=== PATIENT | male | born 1970 | race Two or more races ===

== ENCOUNTER → 2020-09-23 | Outpatient (CLI) | payer OTHER ==
[~2020-09-23] MED LIST: CYAN100031 PO; FERR325T72 PO; METF10007 PO; PANT40TA77 PO; PIOG30TA41 PO
[2020-09-23 12:34] LABS: BASO % 1 % (0-3); EOS % 2 % (0-3); HEMATOCRIT 35.1 % (39.0-53.0); HEMOGLOBIN 11.2 g/dL (13.0-17.5); LYMPH # 0.6 x10^3/uL (1.0-4.8); LYMPH % 27 % (24-48); MEAN CORPUSCULAR HEMOGLOBIN 25 pg (25-35); MEAN CORPUSCULAR HGB CONC 32 g/dL (31-37); MEAN CORPUSCULAR VOLUME 77 fL (79-100); MONO # 0.2 x10^3/uL (0.0-1.1); MONO % 10 % (0-9); NEUT # 1.3 x10^3/uL (1.8-7.7); PLATELET COUNT 58 x10^3/uL (140-400); RED BLOOD COUNT 4.56 x10^6/uL (4.30-5.70); RED CELL DISTRIBUTION WIDTH 17.2 % (11.5-14.5); WHITE BLOOD COUNT 2.1 x10^3/uL (4.0-11.0)
[2020-09-23 13:05] LABS: CALCIUM 8.5 mg/dL (8.5-10.1); CREATININE 0.5 mg/dL (0.7-1.3); GFR 176.7; POTASSIUM 3.8 mmol/L (3.5-5.1)
[2020-09-23 13:23] LABS: ALBUMIN 3.7 g/dL (3.4-5.0); ALBUMIN/GLOBULIN RATIO 0.9 (1.0-1.7); C-REACTIVE PROTEIN 1.6 mg/L (0-3.3); MAGNESIUM 1.8 mg/dL (1.8-2.4); TOTAL PROTEIN 7.7 g/dL (6.4-8.2)
[2020-09-23 21:07] LABS: RHEUMATOID FACTOR 10.3 IU/mL (0.0-13.9)
[2020-09-24 15:13] LABS: KAPPA FREE 23.5 mg/L (3.3-19.4); KAPPA LAMBDA RATIO 1.14 (0.26-1.65); LAMBDA FREE 20.7 mg/L (5.7-26.3)
[2020-09-26 14:10] LABS: IMMUNOGLOBULIN A 427 mg/dL (90-386); IMMUNOGLOBULIN G 1430 mg/dL (603-1613); IMMUNOGLOBULIN M 306 mg/dL (20-172)
[2020-09-26 15:12] LABS: H PYLORI IGA 11.2 units (0.0-8.9); H PYLORI IGM <9.0 units (0.0-8.9)
[2020-09-26 16:10] LABS: ANA INTERP Negative (.)
[2020-09-26 18:10] LABS: ALBUM 3.8 g/dL (2.9-4.4); ALPHA 1 0.2 g/dL (0.0-0.4); ALPHA 2 0.6 g/dL (0.4-1.0); BETA 1.2 g/dL (0.7-1.3); GAMMA 1.7 g/dL (0.4-1.8); PROTEIN TOTAL 7.5 g/dL (6.0-8.5)
[2020-09-27 03:12] LABS: CYCLIC CITRULLIN PEP AB 5 units (0-19)
[2020-09-27 11:34] LABS: NEUT % 61 % (31-73)
== END ==
LOC: ONCLAB 11:55
PROVIDERS: ATTEND Internal Medicine
DX: D61.818 Other pancytopenia (principal); K76.0 Fatty (change of) liver, not elsewhere classified
CPT/HCPCS: 36415; 80053; 82525; 82607; 82668; 82728; 82746; 82784; 83010; 83520; 83540; 83550; 83615; 83735; 84165; 85025; 85045; 85651; 86038; 86140; 86200; 86317; 86334; 86431; 86677; 86704; 86803; 86880; 87340

== ENCOUNTER 2020-10-31 20:55 | Inpatient (IN) | payer OTHER ==
[~2020-10-31] VITALS: Ht 170.2 cm; Wt 87.7 kg
[2020-10-31] VITALS (9 sets, daily range): BP systolic 108–139; BP diastolic 48–70
[2020-10-31] MEDS ORDERED: ZOLPIDEM 5 MG TABLET. PO PRN (21:15)
[2020-10-31] MEDS: IV NORMAL SALINE 1000ML BAG 1,000 ML IV SCH (21:15)
[2020-10-31] MEDS ORDERED: HYDROcodone/APAP 5/325MG 1 TAB TABLET PO PRN ×2 (21:15)
[2020-10-31] MEDS ORDERED: ACETAMINOPHEN 325 MG TABLET. PO PRN (21:15)
[2020-10-31] MEDS ORDERED: 0.9 % SODIUM CHLORIDE 10 ML DISP.SYRIN. IV PRN (21:15)
[2020-10-31] MEDS ORDERED: BISACODYL 10 MG SUPP.RECT. PR PRN (21:15)
[2020-10-31] MEDS ORDERED: ONDANSETRON PF 4 MG/2 ML VIAL. IVP PRN (21:15)
[2020-10-31] MEDS ORDERED: PIOG30TA41 PO (22:01)
[2020-10-31] MEDS ORDERED: METF10007 PO (22:01)
[2020-10-31 22:08] LABS: RED BLOOD COUNT 2.09 x10^6/uL (4.30-5.70); WHITE BLOOD COUNT 13.2 x10^3/uL (4.0-11.0)
[2020-10-31 22:11] LABS: HEMOGLOBIN 5.4 g/dL (13.0-17.5)
[2020-10-31 22:12] LABS: HEMATOCRIT 16.8 % (39.0-53.0)
[2020-11-01] VITALS (31 sets, daily range): BP systolic 90–124; BP diastolic 45–88
--- NOTE | 2020-11-01 04:27 | NUR ---
direct admit from [facility]- GI bleed. Dark stools for several weeks. Increasing abd. pain. one U prbc;s given
--- NOTE | 2020-11-01 06:55 | PDOC1 ---
History and Physical Date of Admission Date of Admission DATE: 11/01/20 TIME: 06:39 Identification/Chief Complaint Chief Complaint Abdominal pain, melena Source Source: Chart review, Patient History of Present Illness History of Present Illness Patient is a 50-year-old male with past medical history DM2, who presents as a transfer from [facility] due to upper GI bleed. He was initially came to the ER last night due to complaints of right upper quadrant and epigastric abdominal pain over the past 3 days. He also reports associated dark stools over the past 2 weeks. He was seen by his PCP with concerns of his dark stools and was treated with PPI without improvement. He also notes taking some Pepto- Bismol for symptoms without improvement. He denies any history of NSAID use or prior history of ulcers. He is a former alcohol user. In the ER labs showed hemoglobin 5.4, platelet 112, WBC 13.2, CBG 325, Na 131, BUN 27, Cr 0.6, FOBT positive. He was transferred to [facility] for higher level of care and further medical management. Past Medical History Past Medical History Diabetes Past Surgical History Past Surgical History: No pertinent history Family History Family History: Diabetes Social History Smoke: No ALCOHOL: none Drugs: None Current Medications Current Medications Current Medications Acetaminophen (Tylenol) 650 mg PRN Q6HRS PRN PO Headaches, Temp > 101.5'; Start 10/31/20 at 21:15 Ondansetron HCl (Zofran) 4 mg PRN Q6HRS PRN IVP NAUSEA/VOMITING 1ST CHOICE; Start 10/31/20 at 21:15 Zolpidem Tartrate (Ambien) 5 mg PRN QHS PRN PO INSOMNIA, MAY REPEAT IN 1HR; Start 10/31/20 at 21:15 Sodium Chloride (Normal Saline Flush) 3 ml QSHIFT PRN IV AFTER MEDS AND BLOOD DRAWS; Start 10/31/20 at 21:15 Sodium Chloride 1,000 ml @ 100 mls/hr Q10H IV Last administered on 10/31/20at 21:15; Start 10/31/20 at 21:15 Acetaminophen/ Hydrocodone Bitart (Lortab 5/325) 1 tab PRN Q4HRS PRN PO MILD PAIN 1-3 Last administered on 10/31/20at 23:11; Start 10/31/20 at 21:15 Acetaminophen/ Hydrocodone Bitart (Lortab 5/325) 2 tab PRN Q4HRS PRN PO MODERATE PAIN, SEVERE PAIN; Start 10/31/20 at 21:15 Morphine Sulfate (Morphine Sulfate) 2 mg PRN Q1HR PRN IV SEVERE PAIN 7-10; Start 10/31/20 at 21:15 Bisacodyl (Dulcolax Supp) 10 mg PRN DAILY PRN AL CONSTIPATION; Start 10/31/20 at 21:15 Pantoprazole Sodium (PROTONIX VIAL for IV PUSH) 40 mg DAILYAC IVP ; Start 11/01/20 at 07:30 Active Scripts Active Reported Actos (Pioglitazone Hcl) 30 Mg Tablet 30 Mg PO DAILY Metformin Hcl 1,000 Mg Tablet 1,000 Mg PO BIDWMEALS Allergies Allergies: Coded Allergies: No Known Drug Allergies (Unverified , 10/31/20) ROS Review of System GENERAL: No history of weight change, weakness or fevers. SKIN: No bruising, hair changes or rashes. EYES: No blurred, double or loss of vision. NOSE AND THROAT: No history of nosebleeds, hoarseness or sore throat. HEART: Denies chest pain, denies palpitations. LUNGS: Denies cough, hemoptysis, wheezing or shortness of breath. GASTROINTESTINAL: Right upper quadrant and epigastric abdominal pain. Melena. Denies nausea or vomiting. GENITOURINARY: Denies dysuria, frequency, urgency, hematuria. NEUROLOGIC: Denies history of numbness, tingling, tremor or weakness. PSYCHIATRIC: Denies anxiety, denies depression. ENDOCRINE: No history of heat or cold intolerance, polyuria or polydipsia. EXTREMITIES: Denies muscle weakness, joint pain, pain on walking or stiffness. Physical Exam Physical Exam General: Alert, Oriented X3, Cooperative, No acute distress HEENT: PERRLA, EOMI Lungs: Clear to auscultation, Normal air movement Heart: RRR, no murmurs Cardiovascular: S1, S2 Abdomen: Epigastric and right upper quadrant tenderness. Normal bowel sounds, Soft. Extremities: No clubbing, No cyanosis Skin: No rashes, No significant lesion Neuro: Normal speech, Normal tone, Sensation intact Psych/Mental Status: Mental status NL, Mood NL Vitals Vitals Vital Signs Date Time Temp Pulse Resp B/P (MAP) Pulse Ox O2 Delivery O2 Flow Rate FiO2 11/01/20 06:00 92 18 108/55 (72) 100 Room Air 11/01/20 04:00 98.7 98.7 Labs Labs Laboratory Tests Test 10/31/20 21:52 White Blood Count 13.2 x10^3/uL (4.0-11.0) Red Blood Count 2.09 x10^6/uL (4.30-5.70) Hemoglobin 5.4 g/dL (13.0-17.5) Hematocrit 16.8 % (39.0-53.0) Mean Corpuscular Volume 80 fL (79-100) Mean Corpuscular Hemoglobin 26 pg (25-35) Mean Corpuscular Hemoglobin Concent 32 g/dL (31-37) Red Cell Distribution Width 18.0 % (11.5-14.5) Platelet Count 112 x10^3/uL (140-400) Laboratory Tests Test 10/31/20 21:52 White Blood Count 13.2 x10^3/uL (4.0-11.0) Red Blood Count 2.09 x10^6/uL (4.30-5.70) Hemoglobin 5.4 g/dL (13.0-17.5) Hematocrit 16.8 % (39.0-53.0) Mean Corpuscular Volume 80 fL (79-100) Mean Corpuscular Hemoglobin 26 pg (25-35) Mean Corpuscular Hemoglobin Concent 32 g/dL (31-37) Red Cell Distribution Width 18.0 % (11.5-14.5) Platelet Count 112 x10^3/uL (140-400) VTE Prophylaxis Ordered VTE Prophylaxis Devices: Yes VTE Pharmacological Prophylaxi: Contraindicated Assessment/Plan Assessment/Plan Upper GI bleed Blood loss anemia Thrombocytopenia DM2 with hyperglycemia Plan: Patient was admitted to ICU and received packed red blood cell infusion Protonix infusion Will place consult GI; anticipate endoscopy to evaluate source of bleeding. Once his hemoglobin has improved he may be transferred out of the ICU Will continue to monitor platelets; may be secondary to history of alcohol use. Basal/prandial insulin FEN - NPO for now PPX - SCDs FULL CODE Dispo - inpatient for above Advance Care Planning: Total time spent [id number] with patient 16 minutes in discussion with goals of care, comfort care, end-of-life care, pain management, code status; patient names (Eva Escobedo) as surrogate decision-maker. Justifications for Admission Abdominal Pain Indications Is NPO status required?: Yes Justification for admission: Patient may require to be NPO for greater 24hours making it medically necessary to manage patient as inpatient. Other Justification KALIE CERVANTES MD Nov 01, 2020 06:55
[2020-11-01] MEDS ORDERED: IV DEXTROSE 5% 250 ML BAG. IV PRN (07:00)
[2020-11-01] MEDS ORDERED: DEXTROSE 50% 25 GM / 50ML DISP.SYRIN. IV PRN (07:00)
[2020-11-01 07:16] LABS: BASO % 0 % (0-3); EOS % 1 % (0-3); LYMPH # 2.6 x10^3/uL (1.0-4.8); LYMPH % 32 % (24-48); MEAN CORPUSCULAR HEMOGLOBIN 27 pg (25-35); MEAN CORPUSCULAR HGB CONC 33 g/dL (31-37); MEAN CORPUSCULAR VOLUME 81 fL (79-100); MONO # 1.2 x10^3/uL (0.0-1.1); MONO % 15 % (0-9); NEUT # 4.2 x10^3/uL (1.8-7.7); NEUT % 52 % (31-73); PLATELET COUNT 80 x10^3/uL (140-400); RED BLOOD COUNT 2.31 x10^6/uL (4.30-5.70); RED CELL DISTRIBUTION WIDTH 17.3 % (11.5-14.5)
[2020-11-01 07:21] LABS: HEMATOCRIT 18.6 % (39.0-53.0); HEMOGLOBIN 6.2 g/dL (13.0-17.5)
[2020-11-01 07:23] LABS: PROTHROMBIN TIME PATIENT 16.5 SEC (11.7-14.0)
[2020-11-01 07:39] LABS: ALBUMIN 2.1 g/dL (3.4-5.0); ALBUMIN/GLOBULIN RATIO 0.8 (1.0-1.7); CALCIUM 7.2 mg/dL (8.5-10.1); CREATININE 0.7 mg/dL (0.7-1.3); GFR 119.9; POTASSIUM 4.2 mmol/L (3.5-5.1); TOTAL BILIRUBIN 0.7 mg/dL (0.2-1.0); TOTAL PROTEIN 4.7 g/dL (6.4-8.2)
[2020-11-01] MEDS: PANTOPRAZOLE IV PUSH 40 MG VIAL. IVP SCH (08:38)
[2020-11-01] MEDS: MORPHINE SULFATE 2 MG/ML VIAL. IV PRN ×2 (08:42→17:39)
[2020-11-01] MEDS: INSULIN LISPRO 300 UNITS/3 ML VIAL. SQ SCH ×3 (09:35→17:36)
[2020-11-01] MEDS: IV NORMAL SALINE 1000ML BAG 1,000 ML IV SCH ×2 (10:29→17:38)
--- NOTE | 2020-11-01 13:24 | PDOC2 ---
CONSULT Date of Consult Date of Consult DATE: 11/01/20 TIME: 13:21 Reason for Consult Reason for Consult: Anemia/melena Past Surgical History Past Surgical History: No pertinent history Family History Family History: Diabetes Social History No ALCOHOL: none Drugs: None Current Medications Current Medications Current Medications Acetaminophen (Tylenol) 650 mg PRN Q6HRS PRN PO Headaches, Temp > 101.5'; Start 10/31/20 at 21:15 Ondansetron HCl (Zofran) 4 mg PRN Q6HRS PRN IVP NAUSEA/VOMITING 1ST CHOICE; Start 10/31/20 at 21:15 Zolpidem Tartrate (Ambien) 5 mg PRN QHS PRN PO INSOMNIA, MAY REPEAT IN 1HR; Start 10/31/20 at 21:15 Sodium Chloride (Normal Saline Flush) 3 ml QSHIFT PRN IV AFTER MEDS AND BLOOD DRAWS; Start 10/31/20 at 21:15 Sodium Chloride 1,000 ml @ 100 mls/hr Q10H IV Last administered on 11/01/20at 10:29; Start 10/31/20 at 21:15 Acetaminophen/ Hydrocodone Bitart (Lortab 5/325) 1 tab PRN Q4HRS PRN PO MILD PAIN 1-3 Last administered on 10/31/20at 23:11; Start 10/31/20 at 21:15 Acetaminophen/ Hydrocodone Bitart (Lortab 5/325) 2 tab PRN Q4HRS PRN PO MODERATE PAIN, SEVERE PAIN; Start 10/31/20 at 21:15 Morphine Sulfate (Morphine Sulfate) 2 mg PRN Q1HR PRN IV SEVERE PAIN 7-10 Last administered on 11/01/20at 08:42; Start 10/31/20 at 21:15 Bisacodyl (Dulcolax Supp) [address] CONSTIPATION; Start 10/31/20 at 21:15 Pantoprazole Sodium (PROTONIX VIAL for IV PUSH) 40 mg DAILYAC IVP Last administered on 11/01/20at 08:38; Start 11/01/20 at 07:30 Insulin Glargine (Lantus Syringe) 15 unit QHS SQ ; Start 11/01/20 at 21:00 Insulin Human Lispro (HumaLOG) 5 units TIDWMEALS SQ Last administered on 11/01/20at 09:35; Start 11/01/20 at 08:00 Dextrose (Dextrose 50%-Water Syringe) 12.5 gm PRN Q15MIN PRN IV SEE COMMENTS; Start 11/01/20 at 07:00 Dextrose (Iv Dextrose 5%) 250 ml PRN Q15MIN PRN IV SEE COMMENTS; Start 11/01/20 at 07:00 Active Scripts Active Reported Actos (Pioglitazone Hcl) 30 Mg Tablet 30 Mg PO DAILY Metformin Hcl 1,000 Mg Tablet 1,000 Mg PO BIDWMEALS Allergies Allergies: Coded Allergies: No Known Drug Allergies (Unverified , 10/31/20) Vitals VITALS Vital Signs Date Time Temp Pulse Resp B/P (MAP) Pulse Ox O2 Delivery O2 Flow Rate FiO2 11/01/20 12:00 92 16 108/64 (79) 96 Room Air 11/01/20 11:00 99.5 99.5 Labs Labs Laboratory Tests Test 10/31/20 21:52 11/01/20 06:38 11/01/20 11:18 White Blood Count 13.2 x10^3/uL (4.0-11.0) 8.0 x10^3/uL (4.0-11.0) Red Blood Count 2.09 x10^6/uL (4.30-5.70) 2.31 x10^6/uL (4.30-5.70) Hemoglobin 5.4 g/dL (13.0-17.5) 6.2 g/dL (13.0-17.5) Hematocrit 16.8 % (39.0-53.0) 18.6 % (39.0-53.0) Mean Corpuscular Volume 80 fL (79-100) 81 fL (79-100) Mean Corpuscular Hemoglobin 26 pg (25-35) 27 pg (25-35) Mean Corpuscular Hemoglobin Concent 32 g/dL (31-37) 33 g/dL (31-37) Red Cell Distribution Width 18.0 % (11.5-14.5) 17.3 % (11.5-14.5) Platelet Count 112 x10^3/uL (140-400) 80 x10^3/uL (140-400) Neutrophils (%) (Auto) 52 % (31-73) Lymphocytes (%) (Auto) 32 % (24-48) Monocytes (%) (Auto) 15 % (0-9) Eosinophils (%) (Auto) 1 % (0-3) Basophils (%) (Auto) 0 % (0-3) Neutrophils # (Auto) 4.2 x10^3/uL (1.8-7.7) Lymphocytes # (Auto) 2.6 x10^3/uL (1.0-4.8) Monocytes # (Auto) 1.2 x10^3/uL (0.0-1.1) Eosinophils # (Auto) 0.0 x10^3/uL (0.0-0.7) Basophils # (Auto) 0.0 x10^3/uL (0.0-0.2) Prothrombin Time 16.5 SEC (11.7-14.0) Prothromb Time International Ratio 1.4 (0.8-1.1) Sodium Level 138 mmol/L (136-145) Potassium Level 4.2 mmol/L (3.5-5.1) Chloride Level 105 mmol/L (98-107) Carbon Dioxide Level 28 mmol/L (21-32) Anion Gap 5 (6-14) Blood Urea Nitrogen 24 mg/dL (8-26) Creatinine 0.7 mg/dL (0.7-1.3) Estimated GFR (Cockcroft-Gault) 119.9 BUN/Creatinine Ratio 34 (6-20) Glucose Level 238 mg/dL (70-99) Calcium Level 7.2 mg/dL (8.5-10.1) Total Bilirubin 0.7 mg/dL (0.2-1.0) Aspartate Amino Transf (AST/SGOT) 36 U/L (15-37) Alanine Aminotransferase (ALT/SGPT) 44 U/L (16-63) Alkaline Phosphatase 75 U/L (46-116) Total Protein 4.7 g/dL (6.4-8.2) Albumin 2.1 g/dL (3.4-5.0) Albumin/Globulin Ratio 0.8 (1.0-1.7) Amylase Level 84 U/L (25-115) Glucose (Fingerstick) 173 mg/dL (70-99) Laboratory Tests Test 10/31/20 21:52 11/01/20 06:38 11/01/20 11:18 White Blood Count 13.2 x10^3/uL (4.0-11.0) 8.0 x10^3/uL (4.0-11.0) Red Blood Count 2.09 x10^6/uL (4.30-5.70) 2.31 x10^6/uL (4.30-5.70) Hemoglobin 5.4 g/dL (13.0-17.5) 6.2 g/dL (13.0-17.5) Hematocrit 16.8 % (39.0-53.0) 18.6 % (39.0-53.0) Mean Corpuscular Volume 80 fL (79-100) 81 fL (79-100) Mean Corpuscular Hemoglobin 26 pg (25-35) 27 pg (25-35) Mean Corpuscular Hemoglobin Concent 32 g/dL (31-37) 33 g/dL (31-37) Red Cell Distribution Width 18.0 % (11.5-14.5) 17.3 % (11.5-14.5) Platelet Count 112 x10^3/uL (140-400) 80 x10^3/uL (140-400) Neutrophils (%) (Auto) 52 % (31-73) Lymphocytes (%) (Auto) 32 % (24-48) Monocytes (%) (Auto) 15 % (0-9) Eosinophils (%) (Auto) 1 % (0-3) Basophils (%) (Auto) 0 % (0-3) Neutrophils # (Auto) 4.2 x10^3/uL (1.8-7.7) Lymphocytes # (Auto) 2.6 x10^3/uL (1.0-4.8) Monocytes # (Auto) 1.2 x10^3/uL (0.0-1.1) Eosinophils # (Auto) 0.0 x10^3/uL (0.0-0.7) Basophils # (Auto) 0.0 x10^3/uL (0.0-0.2) Prothrombin Time 16.5 SEC (11.7-14.0) Prothromb Time International Ratio 1.4 (0.8-1.1) Sodium Level 138 mmol/L (136-145) Potassium Level 4.2 mmol/L (3.5-5.1) Chloride Level 105 mmol/L (98-107) Carbon Dioxide Level 28 mmol/L (21-32) Anion Gap 5 (6-14) Blood Urea Nitrogen 24 mg/dL (8-26) Creatinine 0.7 mg/dL (0.7-1.3) Estimated GFR (Cockcroft-Gault) 119.9 BUN/Creatinine Ratio 34 (6-20) Glucose Level 238 mg/dL (70-99) Calcium Level 7.2 mg/dL (8.5-10.1) Total Bilirubin 0.7 mg/dL (0.2-1.0) Aspartate Amino Transf (AST/SGOT) 36 U/L (15-37) Alanine Aminotransferase (ALT/SGPT) 44 U/L (16-63) Alkaline Phosphatase 75 U/L (46-116) Total Protein 4.7 g/dL (6.4-8.2) Albumin 2.1 g/dL (3.4-5.0) Albumin/Globulin Ratio 0.8 (1.0-1.7) Amylase Level 84 U/L (25-115) Glucose (Fingerstick) 173 mg/dL (70-99) Assessment/Plan Assessment/Plan Acute blood loss anemia- with melena, differential includes: PUD secondary to NSAIDS, portal hypertensino with varices, malignancy, Metz's, and/or colon cancer/polyps. Plan serial Hg transfusionsal support to maintain Hg > 7 retic/b12/iron stores to better characterize anemia PPI therapy EGD to further assess. R/B discussed with family/patient who are willing to proceed Full note dictated DARIUS HENRIQUEZ MD Nov 01, 2020 13:24
[2020-11-01] MEDS ORDERED: PROPOFOL 10 MG/ML (20ML) VIAL. IV ONE (14:51)
[2020-11-01] MEDS ORDERED: LIDOCAINE 2% PF 5 ML VIAL. ONE (14:52)
--- NOTE | 2020-11-01 14:55 | PDOC4 ---
Operative Note Operative Note EGD with biopsies/variceal banding Meds propofol per anesthesia Pre-op dx melena/acute blood loss anemia post-op dx multiple gastric ulcers s/p biopsy grade 2 esophageal varices s/p banding x6 Imp Melena- most likely secondary to variceal bleed Plan PPi therapy pending biopsy results advance diet serial CBCs B12 supplements im q month EGD in 2 weeks for repeat variceal ligation DARIUS HENRIQUEZ MD Nov 01, 2020 14:55
[2020-11-01] MEDS ORDERED: CYANOCOBALAMIN (VITAMIN B-12) 1,000 MCG/ML VIAL. IM ONE (15:00)
--- NOTE | 2020-11-01 15:37 | NUR ---
SS following for discharge planning. SS reviewed pt chart and discussed with pt RN. Pt is from home with spouse and is currently on room air. GI consulted. Pt had EGD today. SS will continue to follow for discharge planning.
[2020-11-01] MEDS ORDERED: INSULIN GLARGINE SYRINGE. SQ SCH (21:00)
--- NOTE | 2020-11-01 21:40 | CONS ---
DATE OF CONSULTATION: 11/01/2020 GI CONSULTATION REASON FOR CONSULTATION: Melena and acute blood loss anemia. HISTORY OF PRESENT ILLNESS: A 50-year-old male with past medical history significant for diabetes as well as osteoarthrosis is admitted with right upper quadrant epigastric abdominal pain over the past three days, he has been passing dark stools for the past several months. He had been taking Pepto-Bismol without improvement. Does use NSAIDs and Tylenol for his arthritis. Hemoglobin was found to be 5.4 on admission. Repeat has hemoglobin of 6.2, status post 1 unit with an additional unit already been given and a third we will be in process. Denies any change in weight. Denies any dysphagia or odynophagia. Denies family history of colon cancer. He has not undergone previous upper endoscopy or colonoscopy and does wish to be released to return to work if possible. PAST MEDICAL HISTORY: Acute blood loss anemia, diabetes. ALLERGIES: None. MEDICATIONS: Insulin, pantoprazole. 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 FAMILY HISTORY: Noncontributory. REVIEW OF SYSTEMS: Per records. PHYSICAL EXAMINATION: GENERAL: Reveals a well-nourished, well-developed male who is alert, cooperative, in mild distress. VITAL SIGNS: Temperature 99.5, pulse 92, respiratory rate 16, blood pressure 108/64. HEENT: Reveals normocephalic, atraumatic head. Pupils and extraocular muscles not tested. Sclerae are anicteric. NECK: Supple. LUNGS: Clear. HEART: Reveals S1, S2, without S3, S4 or appreciable murmur. ABDOMEN: Soft with normal bowel sounds. No appreciable hepatosplenomegaly. EXTREMITIES: No cyanosis, clubbing or edema. LABORATORY DATA: Hemoglobin 6.2, hematocrit 16.6, white count 8.0, platelet count is 80,000. Sodium 136, potassium 4.2, BUN 24, creatinine 0.7, glucose is 236, calcium 7.2, bilirubin 0.7, AST of 36, ALT 44, alkaline phosphatase 75, total protein 4.7, albumin is 2.1. Retic count, B12, folate, iron studies presently are pending. INR is 1.4. IMPRESSION: Acute blood loss anemia with NSAID use and remote alcohol history. Thrombocytopenia. Differential includes malignancy, portal hypertension, varices, peptic ulcer disease secondary to NSAIDs and/or malignancy of the stomach and his colon. Therefore, recommend upper endoscopy. We will continue with PPI drip. We will transfuse one additional unit of blood pending CBC results and proceed with upper endoscopy today to further assess symptoms. Risks and benefits were discussed with the patient's family including risk of hemorrhage and perforation and he is willing to proceed. Further studies including CT scan of abdomen and pelvis and colonoscopy after appropriate prep would be pursued. GARETT DR: Debbie TID: [id number]
[2020-11-02] MEDS: IV NORMAL SALINE 1000ML BAG 1,000 ML IV SCH (03:15)
[2020-11-02 04:00] VITALS: BP 104/50
[2020-11-02 08:00] VITALS: BP 119/64
[2020-11-02] MEDS: PANTOPRAZOLE IV PUSH 40 MG VIAL. IVP SCH (08:44)
[2020-11-02] MEDS: INSULIN LISPRO 300 UNITS/3 ML VIAL. SQ SCH ×2 (08:45→12:54)
[2020-11-02 09:26] LABS: ALBUMIN 2.3 g/dL (3.4-5.0); ALBUMIN/GLOBULIN RATIO 0.9 (1.0-1.7); CALCIUM 7.3 mg/dL (8.5-10.1); CREATININE 0.5 mg/dL (0.7-1.3); GFR 176.7; POTASSIUM 3.8 mmol/L (3.5-5.1)
--- NOTE | 2020-11-02 09:45 | PDOC ---
Date of Service: DATE: 11/02/20 TIME: 09:39 Subjective: Subjective: Feels fine, hungry, wants to go home, no bleeding. Objective: Objective: H/o heavy alcohol use - sober x 8 years. US in 2016 w/ hepatic steatosis and mild splenomegaly. Viral Hep panel negative, iron deficient, lowish B12. Vital Signs: Vital Signs Date Time Temp Pulse Resp B/P (MAP) Pulse Ox O2 Delivery O2 Flow Rate FiO2 11/02/20 08:00 99.8 97 16 119/64 (82) 98 Room Air 99.8 11/01/20 14:49 4 Labs: Laboratory Tests Test 11/01/20 11:18 11/01/20 13:25 11/01/20 17:33 11/01/20 20:33 Glucose (Fingerstick) 173 mg/dL 176 mg/dL 157 mg/dL Red Blood Count 2.56 x10^6/uL Hemoglobin 7.0 g/dL Hematocrit 21.0 % Mean Corpuscular Hemoglobin Concent 33 g/dL Absolute Reticulocyte Count 0.137 x10^6/uL Percent Reticulocyte Count 5.4 % Immature Reticulocyte Fraction 0.59 Iron Level 8 ug/dL Total Iron Binding Capacity 326 ug/dL Iron Saturation 2 % Vitamin B12 Level 371 pg/mL Test 11/02/20 08:20 11/02/20 08:40 Sodium Level 141 mmol/L Potassium Level 3.8 mmol/L Chloride Level 107 mmol/L Carbon Dioxide Level 26 mmol/L Anion Gap 8 Blood Urea Nitrogen 18 mg/dL Creatinine 0.5 mg/dL Estimated GFR (Cockcroft-Gault) 176.7 BUN/Creatinine Ratio 36 Glucose Level 157 mg/dL Calcium Level 7.3 mg/dL Total Bilirubin 1.0 mg/dL Aspartate Amino Transf (AST/SGOT) 78 U/L Alanine Aminotransferase (ALT/SGPT) 68 U/L Alkaline Phosphatase 74 U/L Total Protein 5.0 g/dL Albumin 2.3 g/dL Albumin/Globulin Ratio 0.9 Glucose (Fingerstick) 160 mg/dL Imaging: EGD with biopsies/variceal banding 11/01/20 Pre-op dx melena/acute blood loss anemia post-op dx multiple gastric ulcers s/p biopsy grade 2 esophageal varices s/p banding x6 Imp Melena- most likely secondary to variceal bleed Plan PPi therapy pending biopsy results advance diet serial CBCs B12 supplements im q month EGD in 2 weeks for repeat variceal ligation PE: GEN: NAD - up in chair eating food his brought LUNGS: CTAB HEART: RRR ABD: round, soft NEURO/PSYCH: A & O 3 A/P: Melena - no recurrence Anemia - iron and B12 deficient - s/p transfusions Thrombocytopenia, coagulopathy Medardo (biopsy pending), esophageal varices s/p banding 11/01/20 CRC screen - average risk H/o alcohol - sober x 8 years -- Awaiting recheck of labs this morning. ADAT. Okay to DC per GI on PPI, iron, and B12. Follow-up in 2 weeks for repeat EGD/banding - discussed importance of follow-up. Needs routine follow-up re: cirrhosis (abd US, AFP, etc) - can pursue as outpt. Needs outpt colonoscopy at some point for screening. Justicifation of Admission Dx: Justifications for Admission: Justification of Admission Dx: Yes BLAS MCKEON Nov 02, 2020 09:45
[2020-11-02] MEDS ORDERED: CYANOCOBALAMIN (VITAMIN B-12) 1,000 MCG TABLET. PO SCH (10:00)
[2020-11-02 10:21] LABS: BASO % 0 % (0-3); EOS % 0 % (0-3); HEMATOCRIT 24.2 % (39.0-53.0); LYMPH # 1.1 x10^3/uL (1.0-4.8); LYMPH % 28 % (24-48); MEAN CORPUSCULAR HEMOGLOBIN 27 pg (25-35); MEAN CORPUSCULAR HGB CONC 33 g/dL (31-37); MEAN CORPUSCULAR VOLUME 82 fL (79-100); MONO # 0.5 x10^3/uL (0.0-1.1); MONO % 13 % (0-9); NEUT # 2.4 x10^3/uL (1.8-7.7); NEUT % 59 % (31-73); PLATELET COUNT 60 x10^3/uL (140-400); RED BLOOD COUNT 2.94 x10^6/uL (4.30-5.70); RED CELL DISTRIBUTION WIDTH 16.7 % (11.5-14.5); WHITE BLOOD COUNT 4.1 x10^3/uL (4.0-11.0)
[2020-11-02 12:00] VITALS: BP 132/61
[2020-11-02] MEDS ORDERED: FERROUS SULFATE 325 MG TABLET. PO SCH (12:00)
--- NOTE | 2020-11-02 13:00 | NUR ---
SS following up with discharge planning. SS reviewed pt chart and discussed with pt RN. Pt is currently on room air. Probable discharge to home today with self care. SS will continue to follow for discharge planning.
[2020-11-02] MEDS ORDERED: PANT40TA77 PO (13:39)
[2020-11-02] MEDS ORDERED: FERR325T72 PO (13:42)
[2020-11-02] MEDS ORDERED: CYAN100031 PO (13:47)
--- NOTE | 2020-11-02 13:48 | PDOC ---
[employer] PROGRESS NOTE Date of Service DOS: DATE: 11/02/20 TIME: 13:36 Chief Complaint Chief Complaint Upper GI bleed Blood loss anemia Thrombocytopenia DM2 with hyperglycemia Plan: Patient was admitted to ICU and received packed red blood cell infusion Protonix infusion Will place consult GI; anticipate endoscopy to evaluate source of bleeding. Once his hemoglobin has improved he may be transferred out of the ICU Will continue to monitor platelets; may be secondary to history of alcohol use. Basal/prandial insulin FEN - NPO for now PPX - SCDs FULL CODE Dispo - inpatient for above History of Present Illness History of Present Illness Patient is a 50-year-old male with past medical history DM2, who presents as a transfer from [facility] due to upper GI bleed. He was initially came to the ER last night due to complaints of right upper quadrant and epigastric abdominal pain over the past 3 days. He also reports associated dark stools over the past 2 weeks. He was seen by his PCP with concerns of his dark stools and was treated with PPI without improvement. He also notes taking some Pepto- Bismol for symptoms without improvement. He denies any history of NSAID use or prior history of ulcers. He is a former alcohol user. In the ER labs showed hemoglobin 5.4, platelet 112, WBC 13.2, CBG 325, Na 131, BUN 27, Cr 0.6, FOBT positive. He was transferred to [facility] for higher level of care and further medical management. 11/02/2020: Patient denies significant abdominal pain. Had a EGD yesterday showin g multiple gastric ulcers s/p biopsy grade 2 esophageal varices s/p banding x 6. Per GI, he was okay to discharge on PPI, iron, and B12. His recommended follow-up in 2 weeks for repeat EGD/banding. Greater than 30 minutes spent managing discharge of this patient. Vitals/I&O Vitals/I&O: Vital Signs Date Time Temp Pulse Resp B/P (MAP) Pulse Ox O2 Delivery O2 Flow Rate FiO2 11/02/20 12:00 99.9 98 15 132/61 (84) 96 Room Air 99.9 11/01/20 14:49 4 I & O 11/01/20 11/01/20 11/02/20 15:00 23:00 07:00 Intake Total 120 ml 100 ml Output Total 351 ml 920 ml 500 ml Balance -351 ml -800 ml -400 ml Physical Exam General: Alert, Oriented X3, Cooperative Heart: Regular rate Lungs: Clear Abdomen: Normal bowel sounds, Soft Extremities: No clubbing, No cyanosis Skin: No rashes, No breakdown Labs Labs: Laboratory Tests Test 11/01/20 17:33 11/01/20 20:33 11/02/20 08:20 11/02/20 08:40 Glucose (Fingerstick) 176 mg/dL (70-99) 157 mg/dL (70-99) 160 mg/dL (70-99) White Blood Count 4.1 x10^3/uL (4.0-11.0) Red Blood Count 2.94 x10^6/uL (4.30-5.70) Hemoglobin 8.0 g/dL (13.0-17.5) Hematocrit 24.2 % (39.0-53.0) Mean Corpuscular Volume 82 fL (79-100) Mean Corpuscular Hemoglobin 27 pg (25-35) Mean Corpuscular Hemoglobin Concent 33 g/dL (31-37) Red Cell Distribution Width 16.7 % (11.5-14.5) Platelet Count 60 x10^3/uL (140-400) Neutrophils (%) (Auto) 59 % (31-73) Lymphocytes (%) (Auto) 28 % (24-48) Monocytes (%) (Auto) 13 % (0-9) Eosinophils (%) (Auto) 0 % (0-3) Basophils (%) (Auto) 0 % (0-3) Neutrophils # (Auto) 2.4 x10^3/uL (1.8-7.7) Lymphocytes # (Auto) 1.1 x10^3/uL (1.0-4.8) Monocytes # (Auto) 0.5 x10^3/uL (0.0-1.1) Eosinophils # (Auto) 0.0 x10^3/uL (0.0-0.7) Basophils # (Auto) 0.0 x10^3/uL (0.0-0.2) Sodium Level 141 mmol/L (136-145) Potassium Level 3.8 mmol/L (3.5-5.1) Chloride Level 107 mmol/L (98-107) Carbon Dioxide Level 26 mmol/L (21-32) Anion Gap 8 (6-14) Blood Urea Nitrogen 18 mg/dL (8-26) Creatinine 0.5 mg/dL (0.7-1.3) Estimated GFR (Cockcroft-Gault) 176.7 BUN/Creatinine Ratio 36 (6-20) Glucose Level 157 mg/dL (70-99) Calcium Level 7.3 mg/dL (8.5-10.1) Total Bilirubin 1.0 mg/dL (0.2-1.0) Aspartate Amino Transf (AST/SGOT) 78 U/L (15-37) Alanine Aminotransferase (ALT/SGPT) 68 U/L (16-63) Alkaline Phosphatase 74 U/L (46-116) Total Protein 5.0 g/dL (6.4-8.2) Albumin 2.3 g/dL (3.4-5.0) Albumin/Globulin Ratio 0.9 (1.0-1.7) Test 11/02/20 12:14 Glucose (Fingerstick) 173 mg/dL (70-99) Comment Review of Relevant I have reviewed the following items brandon (where applicable) has been applied. Medications: Current Medications Medications (Trade) Dose Ordered Sig/Nayan Route PRN Reason Start Time Stop Time Status Last Admin Dose Admin Insulin Glargine (Lantus Syringe) 15 unit QHS SQ 11/01/20 21:00 11/01/20 20:34 Cyanocobalamin (Vitamin B-12 Inj) 1,000 mcg 1X ONCE IM 11/01/20 15:00 11/01/20 15:01 DC 11/01/20 15:23 Ferrous Sulfate (Feosol) 325 mg BIDWMEALS PO 11/02/20 12:00 11/02/20 12:53 Cyanocobalamin (Vitamin B-12) 1,000 mcg DAILY PO 11/02/20 10:00 11/02/20 12:53 Justifications for Admission Abdominal Pain Indications Is NPO status required?: Yes Justification for admission: Patient may require to be NPO for greater 24hours making it medically necessary to manage patient as inpatient. Other Justification KALIE CERVANTES MD Nov 02, 2020 13:48
--- NOTE | 2020-11-02 13:50 | PDOC3 ---
Discharge Summary Visit Information Date of Admission: Nov 01, 2020 Date of Discharge: Nov 02, 2020 Brief Hospital Course Allergies Allergies Coded Allergies Type Severity Reaction Last Updated Verified No Known Drug Allergies 10/31/20 No Vital Signs Vital Signs Date Time Temp Pulse Resp B/P (MAP) Pulse Ox O2 Delivery O2 Flow Rate FiO2 11/02/20 12:00 99.9 98 15 132/61 (84) 96 Room Air 99.9 11/01/20 14:49 4 Lab Results Laboratory Tests Test 10/31/20 21:52 11/01/20 06:38 11/01/20 11:18 11/01/20 13:25 White Blood Count 13.2 x10^3/uL (4.0-11.0) 8.0 x10^3/uL (4.0-11.0) Red Blood Count 2.09 x10^6/uL (4.30-5.70) 2.31 x10^6/uL (4.30-5.70) 2.56 x10^6/uL (4.30-5.70) Hemoglobin 5.4 g/dL (13.0-17.5) 6.2 g/dL (13.0-17.5) 7.0 g/dL (13.0-17.5) Hematocrit 16.8 % (39.0-53.0) 18.6 % (39.0-53.0) 21.0 % (39.0-53.0) Mean Corpuscular Volume 80 fL (79-100) 81 fL (79-100) Mean Corpuscular Hemoglobin 26 pg (25-35) 27 pg (25-35) Mean Corpuscular Hemoglobin Concent 32 g/dL (31-37) 33 g/dL (31-37) 33 g/dL (31-37) Red Cell Distribution Width 18.0 % (11.5-14.5) 17.3 % (11.5-14.5) Platelet Count 112 x10^3/uL (140-400) 80 x10^3/uL (140-400) Neutrophils (%) (Auto) 52 % (31-73) Lymphocytes (%) (Auto) 32 % (24-48) Monocytes (%) (Auto) 15 % (0-9) Eosinophils (%) (Auto) 1 % (0-3) Basophils (%) (Auto) 0 % (0-3) Neutrophils # (Auto) 4.2 x10^3/uL (1.8-7.7) Lymphocytes # (Auto) 2.6 x10^3/uL (1.0-4.8) Monocytes # (Auto) 1.2 x10^3/uL (0.0-1.1) Eosinophils # (Auto) 0.0 x10^3/uL (0.0-0.7) Basophils # (Auto) 0.0 x10^3/uL (0.0-0.2) Prothrombin Time 16.5 SEC (11.7-14.0) Prothromb Time International Ratio 1.4 (0.8-1.1) Sodium Level 138 mmol/L (136-145) Potassium Level 4.2 mmol/L (3.5-5.1) Chloride Level 105 mmol/L (98-107) Carbon Dioxide Level 28 mmol/L (21-32) Anion Gap 5 (6-14) Blood Urea Nitrogen 24 mg/dL (8-26) Creatinine 0.7 mg/dL (0.7-1.3) Estimated GFR (Cockcroft-Gault) 119.9 BUN/Creatinine Ratio 34 (6-20) Glucose Level 238 mg/dL (70-99) Calcium Level 7.2 mg/dL (8.5-10.1) Total Bilirubin 0.7 mg/dL (0.2-1.0) Aspartate Amino Transf (AST/SGOT) 36 U/L (15-37) Alanine Aminotransferase (ALT/SGPT) 44 U/L (16-63) Alkaline Phosphatase 75 U/L (46-116) Total Protein 4.7 g/dL (6.4-8.2) Albumin 2.1 g/dL (3.4-5.0) Albumin/Globulin Ratio 0.8 (1.0-1.7) Amylase Level 84 U/L (25-115) Glucose (Fingerstick) 173 mg/dL (70-99) Absolute Reticulocyte Count 0.137 x10^6/uL (0.020-0.120) Percent Reticulocyte Count 5.4 % (0.5-2.3) Immature Reticulocyte Fraction 0.59 (0.20-0.60) Iron Level 8 ug/dL (65-175) Total Iron Binding Capacity 326 ug/dL (250-450) Iron Saturation 2 % (15-34) Vitamin B12 Level 371 pg/mL (247-911) Test 11/01/20 17:33 11/01/20 20:33 11/02/20 08:20 11/02/20 08:40 Glucose (Fingerstick) 176 mg/dL (70-99) 157 mg/dL (70-99) 160 mg/dL (70-99) White Blood Count 4.1 x10^3/uL (4.0-11.0) Red Blood Count 2.94 x10^6/uL (4.30-5.70) Hemoglobin 8.0 g/dL (13.0-17.5) Hematocrit 24.2 % (39.0-53.0) Mean Corpuscular Volume 82 fL (79-100) Mean Corpuscular Hemoglobin 27 pg (25-35) Mean Corpuscular Hemoglobin Concent 33 g/dL (31-37) Red Cell Distribution Width 16.7 % (11.5-14.5) Platelet Count 60 x10^3/uL (140-400) Neutrophils (%) (Auto) 59 % (31-73) Lymphocytes (%) (Auto) 28 % (24-48) Monocytes (%) (Auto) 13 % (0-9) Eosinophils (%) (Auto) 0 % (0-3) Basophils (%) (Auto) 0 % (0-3) Neutrophils # (Auto) 2.4 x10^3/uL (1.8-7.7) Lymphocytes # (Auto) 1.1 x10^3/uL (1.0-4.8) Monocytes # (Auto) 0.5 x10^3/uL (0.0-1.1) Eosinophils # (Auto) 0.0 x10^3/uL (0.0-0.7) Basophils # (Auto) 0.0 x10^3/uL (0.0-0.2) Sodium Level 141 mmol/L (136-145) Potassium Level 3.8 mmol/L (3.5-5.1) Chloride Level 107 mmol/L (98-107) Carbon Dioxide Level 26 mmol/L (21-32) Anion Gap 8 (6-14) Blood Urea Nitrogen 18 mg/dL (8-26) Creatinine 0.5 mg/dL (0.7-1.3) Estimated GFR (Cockcroft-Gault) 176.7 BUN/Creatinine Ratio 36 (6-20) Glucose Level 157 mg/dL (70-99) Calcium Level 7.3 mg/dL (8.5-10.1) Total Bilirubin 1.0 mg/dL (0.2-1.0) Aspartate Amino Transf (AST/SGOT) 78 U/L (15-37) Alanine Aminotransferase (ALT/SGPT) 68 U/L (16-63) Alkaline Phosphatase 74 U/L (46-116) Total Protein 5.0 g/dL (6.4-8.2) Albumin 2.3 g/dL (3.4-5.0) Albumin/Globulin Ratio 0.9 (1.0-1.7) Test 11/02/20 12:14 Glucose (Fingerstick) 173 mg/dL (70-99) Laboratory Tests Test 11/01/20 17:33 11/01/20 20:33 11/02/20 08:20 11/02/20 08:40 Glucose (Fingerstick) 176 mg/dL (70-99) 157 mg/dL (70-99) 160 mg/dL (70-99) White Blood Count 4.1 x10^3/uL (4.0-11.0) Red Blood Count 2.94 x10^6/uL (4.30-5.70) Hemoglobin 8.0 g/dL (13.0-17.5) Hematocrit 24.2 % (39.0-53.0) Mean Corpuscular Volume 82 fL (79-100) Mean Corpuscular Hemoglobin 27 pg (25-35) Mean Corpuscular Hemoglobin Concent 33 g/dL (31-37) Red Cell Distribution Width 16.7 % (11.5-14.5) Platelet Count 60 x10^3/uL (140-400) Neutrophils (%) (Auto) 59 % (31-73) Lymphocytes (%) (Auto) 28 % (24-48) Monocytes (%) (Auto) 13 % (0-9) Eosinophils (%) (Auto) 0 % (0-3) Basophils (%) (Auto) 0 % (0-3) Neutrophils # (Auto) 2.4 x10^3/uL (1.8-7.7) Lymphocytes # (Auto) 1.1 x10^3/uL (1.0-4.8) Monocytes # (Auto) 0.5 x10^3/uL (0.0-1.1) Eosinophils # (Auto) 0.0 x10^3/uL (0.0-0.7) Basophils # (Auto) 0.0 x10^3/uL (0.0-0.2) Sodium Level 141 mmol/L (136-145) Potassium Level 3.8 mmol/L (3.5-5.1) Chloride Level 107 mmol/L (98-107) Carbon Dioxide Level 26 mmol/L (21-32) Anion Gap 8 (6-14) Blood Urea Nitrogen 18 mg/dL (8-26) Creatinine 0.5 mg/dL (0.7-1.3) Estimated GFR (Cockcroft-Gault) 176.7 BUN/Creatinine Ratio 36 (6-20) Glucose Level 157 mg/dL (70-99) Calcium Level 7.3 mg/dL (8.5-10.1) Total Bilirubin 1.0 mg/dL (0.2-1.0) Aspartate Amino Transf (AST/SGOT) 78 U/L (15-37) Alanine Aminotransferase (ALT/SGPT) 68 U/L (16-63) Alkaline Phosphatase 74 U/L (46-116) Total Protein 5.0 g/dL (6.4-8.2) Albumin 2.3 g/dL (3.4-5.0) Albumin/Globulin Ratio 0.9 (1.0-1.7) Test 11/02/20 12:14 Glucose (Fingerstick) 173 mg/dL (70-99) Brief Hospital Course Mr. Escobedo is a 50 old male who presented with upper GI bleed. Consultation was placed to GI. Had a EGD showing multiple gastric ulcers s/p biopsy grade 2 esophageal varices s/p banding x 6. Per GI, he was okay to discharge on PPI, iron, and B12. His recommended follow-up in 2 weeks for repeat EGD/banding. Greater than 30 minutes spent managing discharge of this patient. Discharge Information Condition at Discharge: Stable Follow Up: Weeks Disposition/Orders: D/C to Home Scheduled Cyanocobalamin (Vitamin B-12) (B-12) 1,000 Mcg Tablet.er, 1 TAB PO DAILY for supplement for 30 Days, #30 Ref 0 (Reported) Entered as Reported by: DOMO HANSON RN on 11/02/20 1347 Ferrous Sulfate (Feosol) 325 Mg Tablet, 325 MG PO BIDWMEALS for Anemia, #30 Ref 2 Prescribed by: KALIE CERVANTES MD on 11/02/20 1342 Metformin Hcl (Metformin Hcl) 1,000 Mg Tablet, 1,000 MG PO BIDWMEALS for dm, (Reported) Entered as Reported by: MARNI CARLSON on 10/31/202200 Last Taken: Unknown Dose on 10/31/20 Last Action: New Order on 10/31/202200 by MARNI CARLSON Pantoprazole Sodium (Pantoprazole Sodium ) 40 Mg Tablet.dr, 40 MG PO DAILYAC for Gastritis for 28 Days, #30 Ref 1 Prescribed by: KALIE CERVANTES MD on 11/02/20 1339 Pioglitazone Hcl (Actos) 30 Mg Tablet, 30 MG PO DAILY for DM, (Reported) Entered as Reported by: MARNI CARLSON on 10/31/202200 Last Taken: Unknown Dose on 10/31/20 Last Action: New Order on 10/31/202200 by MARNI CARLSON Justicifation of Admission Dx: Justifications for Admission: Justification of Admission Dx: Yes KALIE CERVANTES MD Nov 02, 2020 13:50
--- NOTE | 2020-11-02 14:43 | NUR ---
5Discharge Note: SELENE DAVIS[facility] Discharge instructions and discharge home medications reviewed with Patient and spouse a copy given including prescriptions to fill. Need to follow up with Dr. Doherty and personal PCP re-enforced. All questions have been answered and understanding verbalized. The following instructions and handouts were given: stomach ulcer and diabetic diet from public opinion survey takerWendy. Discontinued iv lines and catheters intact. Patient discharged to with self care.
[2020-11-03] MEDS ORDERED: PANTOPRAZOLE 40 MG TABLET.DR. PO SCH (07:30)
--- NOTE | 2020-11-04 18:07 | PATHOLOGY ---
[facility] Accession Number: [id number] . 01 Material submitted: . gastrointestinal site - BX GASTRIC ULCERS . 01 Clinical history: . GI BLEED EGD GASTRUC ULCERS ESOPHAGEAL VARICES . 02 Diagnosis: Gastric biopsies, gastric ulcers: - Chronic gastritis, moderate, with focal Helicobacter organisms identified. (JPM:edy; 11/04/2020) S 11/04/2020 0833 Local . 02 Comment: Sections of the gastric biopsy reveal segments of gastric antral mucosa showing moderate chronic inflammation, in addition to a few minute segments of acute inflammatory exudate. A properly controlled immunoperoxidase stain for Helicobacter focally reveals a few Helicobacter organisms. There is no evidence of malignancy. (JPM:edy; 11/04/2020) . . Special stain performed: Immunoperoxidase stain for Helicobacter on A1 . . 02 Electronically signed: . Franklyn Baez MD, Pathologist NPI- [id number] . 01 Gross description: . Received in formalin labeled "Gregg, Loni, BX gastric ulcers" are multiple hallman-brown soft tissue fragments measuring in aggregate 0.8 x 0.5 x 0.1 cm. The specimen is submitted entirely in A1. ([facility] [place]; 11/03/2020) [facility] 11/03/2020 1235 Local . 02 Pathologist provided ICD-10: K29.50, B96.81 . 02 CPT . 656752, [id number] Specimen Comment: A courtesy copy of this report has been sent to [phone], [phone] Specimen Comment: [id number], Specimen Comment: Report sent to ,DR LEON / DR IBRAHIM Specimen Comment: Report sent to Performed at: 01 [facility] [address] [facility] [address], [place] [id number] MD Ethan Savage MD Phone: [phone] Performed at: 02 [facility] [address] [place], [place] [id number] MD Franklyn Baez MD Phone: [phone]
== END 2020-11-02 14:56 | disposition home or self-care (01) | DRG 368 ==
LOC: 1 WEST ICU 20:55
PROVIDERS: ADMIT Internal Medicine; ATTEND Internal Medicine
PROC: 30233N1 Transfusion of Nonautologous Red Blood Cells into Peripheral Vein, Percutaneous Approach (ICD-10-PCS; principal; 2020-10-31)
PROC: 0DB68ZX Excision of Stomach, Via Natural or Artificial Opening Endoscopic, Diagnostic (ICD-10-PCS; 2020-10-31)
PROC: 06L38CZ Occlusion of Esophageal Vein with Extraluminal Device, Via Natural or Artificial Opening Endoscopic (ICD-10-PCS; 2020-11-01 14:00)
DX: I85.01 Esophageal varices with bleeding (principal); E43 Unspecified severe protein-calorie malnutrition; D62 Acute posthemorrhagic anemia; D68.9 Coagulation defect, unspecified; K25.4 Chronic or unspecified gastric ulcer with hemorrhage; D69.6 Thrombocytopenia, unspecified; E11.65 Type 2 diabetes mellitus with hyperglycemia; E53.8 Deficiency of other specified B group vitamins; M19.90 Unspecified osteoarthritis, unspecified site; Z83.3 Family history of diabetes mellitus; Z87.891 Personal history of nicotine dependence
CPT/HCPCS: 36415; 36430; 43239; 43244; 80053; 82150; 82607; 82962; 83540; 83550; 85014; 85018; 85025; 85027; 85045; 85610; 86850; 86900; 86901; 86920; 88305; 88342; C9113; J1815; J2270; J2704; J3420; J7030; P9016; G0378

== ENCOUNTER → 2020-11-04 | Outpatient (CLI) | payer OTHER ==
[2020-11-02 12:00] VITALS: BP 132/61
[2020-11-04 14:02] LABS: BASO % 1 % (0-3); EOS % 1 % (0-3); HEMATOCRIT 23.6 % (39.0-53.0); HEMOGLOBIN 7.7 g/dL (13.0-17.5); LYMPH # 0.8 x10^3/uL (1.0-4.8); LYMPH % 24 % (24-48); MEAN CORPUSCULAR HEMOGLOBIN 27 pg (25-35); MEAN CORPUSCULAR HGB CONC 33 g/dL (31-37); MEAN CORPUSCULAR VOLUME 82 fL (79-100); MONO # 0.4 x10^3/uL (0.0-1.1); MONO % 10 % (0-9); NEUT # 2.3 x10^3/uL (1.8-7.7); NEUT % 65 % (31-73); PLATELET COUNT 55 x10^3/uL (140-400); RED BLOOD COUNT 2.87 x10^6/uL (4.30-5.70); RED CELL DISTRIBUTION WIDTH 16.9 % (11.5-14.5); WHITE BLOOD COUNT 3.5 x10^3/uL (4.0-11.0)
== END ==
LOC: ONCLAB 13:30
PROVIDERS: ATTEND Internal Medicine Hematology & Oncology
DX: D50.0 Iron deficiency anemia secondary to blood loss (chronic) (principal); D61.818 Other pancytopenia
CPT/HCPCS: 36415; 82728; 83540; 83550; 85025

== ENCOUNTER → 2020-11-04 | Outpatient (CLI) | payer OTHER ==
[2020-11-02 12:00] VITALS: BP 132/61
--- NOTE | 2020-11-04 16:56 | CARD ---
MR#: [id number] Date of Study: 11/04/2020 Ordering Physician: ABIDA WEBER, Referring Physician: ABIDA WEBER, Tech: Terrell Lau [facility] APPROVED REPORT EXAM: Two-dimensional and M-mode echocardiogram with Doppler and color Doppler. Other Information Quality : GoodHR: 98bpm Rhythm : NSR INDICATION Pulmonary Hypertention RISK FACTORS Alcoholic liver disease with ascites 2D DIMENSIONS Left Atrium(2D)4.4 (1.6-4.0cm)IVSd1.0 (0.7-1.1cm) Aortic Root(2D)3.1 (2.0-3.7cm)LVDd4.7 (3.9-5.9cm) LVOT Diameter2.1 (1.8-2.4cm)PWd1.0 (0.7-1.1cm) LVDs2.4 (2.5-4.0cm)FS (%) 49.5 % SV82.6 mlLVEF(%)80.8 (>50%) Aortic Valve AoV Peak Salvador.194.8cm/sAoV VTI30.9cm AO Peak GR.15.2mmHgLVOT Peak Salvador.117.3cm/s AO Mean GR.8mmHgAVA (VMAX)2.10cm2 Mitral Valve MV E Phsqrtkf15.2cm/sMV E Peak Gr.8mmHg MV DECEL [id number] A Aimlswsx009.2cm/s MV E Mean Gr.4mmHgE/A Ratio0.8 Pulmonary Valve PV Peak Yingsmqm999.6cm/s Tricuspid Valve TR P. Ssowptdj480xt/sTR Peak Gr.38mmHg Pulmonary Vein S1 Feditzoh42.6cm/sD2 Dwyebsdq72.4cm/s LEFT VENTRICLE The left ventricle is normal size. There is normal left ventricular wall thickness. The left ventricu lar systolic function is normal and the ejection fraction is within normal range. EF 55% There is nor mal LV segmental wall motion. Tissue Doppler imaging reveals mild left ventricular diastolic dysfunct ion. RIGHT VENTRICLE The right ventricle is normal size. There is normal right ventricular wall thickness. The right ventr icular systolic function is normal. ATRIA The left atrium is mildly dilated. The right atrium size is normal. The interatrial septum is intact with no evidence for an atrial septal defect or patent foramen ovale as noted on 2-D or Doppler imagi ng. AORTIC VALVE The aortic valve is normal in structure and function. Doppler and Color Flow revealed no significant aortic regurgitation. There is no significant aortic valvular stenosis. There is no aortic valvular v egetation. MITRAL VALVE The mitral valve is normal in structure and function. There is no evidence of mitral valve prolapse. There is no mitral valve stenosis. Doppler and Color-flow revealed trace mitral regurgitation. TRICUSPID VALVE The tricuspid valve is normal in structure and function. Doppler and Color Flow revealed trace tricus pid regurgitation. There is no tricuspid valve prolapse or vegetation. There is no tricuspid valve st enosis. PULMONIC VALVE Doppler and Color Flow revealed no pulmonic valvular regurgitation. There is no pulmonic valvular verena nosis. GREAT VESSELS The aortic root is normal in size. PERICARDIAL EFFUSION There is no pleural effusion. There is no evidence of significant pericardial effusion. Critical Notification Critical Value: No <Conclusion> The left ventricular systolic function is normal and the ejection fraction is within normal range. EF 55% There is normal LV segmental wall motion. Signed by : Abdia Weber, Electronically Approved : 11/04/2020 16:55:48
== END ==
LOC: ECHO 15:27
PROVIDERS: ATTEND Internal Medicine Cardiovascular Disease
DX: I07.1 Rheumatic tricuspid insufficiency (principal)
CPT/HCPCS: 93306

== ENCOUNTER → 2020-11-15 | Outpatient (CLI) | payer OTHER ==
[2020-11-07 11:00] VITALS: BP 100/63
[2020-11-15 14:45] LABS: BASO % 1 % (0-3); EOS % 2 % (0-3); HEMATOCRIT 26.2 % (39.0-53.0); HEMOGLOBIN 8.4 g/dL (13.0-17.5); LYMPH # 0.7 x10^3/uL (1.0-4.8); LYMPH % 43 % (24-48); MEAN CORPUSCULAR HEMOGLOBIN 27 pg (25-35); MEAN CORPUSCULAR HGB CONC 32 g/dL (31-37); MEAN CORPUSCULAR VOLUME 82 fL (79-100); MONO # 0.1 x10^3/uL (0.0-1.1); MONO % 9 % (0-9); NEUT # 0.8 x10^3/uL (1.8-7.7); NEUT % 46 % (31-73); PLATELET COUNT 80 x10^3/uL (140-400); RED BLOOD COUNT 3.18 x10^6/uL (4.30-5.70)
[2020-11-15 15:07] LABS: WHITE BLOOD COUNT 1.7 x10^3/uL (4.0-11.0)
== END ==
LOC: ONCLAB 14:24
PROVIDERS: ATTEND Physician Assistant
DX: D61.818 Other pancytopenia (principal)
CPT/HCPCS: 36415; 85025

== ENCOUNTER → 2020-12-02 | Outpatient (CLI) | payer OTHER ==
[2020-11-07 11:00] VITALS: BP 100/63
[2020-12-02 15:36] LABS: BASO % 1 % (0-3); EOS % 2 % (0-3); HEMATOCRIT 36.1 % (39.0-53.0); HEMOGLOBIN 11.7 g/dL (13.0-17.5); LYMPH # 0.7 x10^3/uL (1.0-4.8); LYMPH % 30 % (24-48); MEAN CORPUSCULAR HEMOGLOBIN 29 pg (25-35); MEAN CORPUSCULAR HGB CONC 32 g/dL (31-37); MEAN CORPUSCULAR VOLUME 88 fL (79-100); MONO # 0.2 x10^3/uL (0.0-1.1); MONO % 10 % (0-9); NEUT # 1.3 x10^3/uL (1.8-7.7); NEUT % 58 % (31-73); PLATELET COUNT 49 x10^3/uL (140-400); RED BLOOD COUNT 4.09 x10^6/uL (4.30-5.70); RED CELL DISTRIBUTION WIDTH 21.1 % (11.5-14.5); WHITE BLOOD COUNT 2.3 x10^3/uL (4.0-11.0)
[2020-12-02 17:07] LABS: PLT ESTIMATE DECREASED (ADEQUATE)
[2020-12-02 17:10] LABS: ANISOCYTOSIS MOD; POLYCHROMASIA SLIGHT
== END ==
LOC: ONCLAB 15:20
PROVIDERS: ATTEND Physician Assistant
DX: D61.818 Other pancytopenia (principal)
CPT/HCPCS: 36415; 85025

== ENCOUNTER → 2020-12-20 | Outpatient (CLI) | payer OTHER ==
[2020-11-07 11:00] VITALS: BP 100/63
[2020-12-20 15:40] LABS: BASO % 1 % (0-3); EOS # 0.1 x10^3/uL (0.0-0.7); EOS % 2 % (0-3); HEMOGLOBIN 12.7 g/dL (13.0-17.5); LYMPH # 0.7 x10^3/uL (1.0-4.8); LYMPH % 33 % (24-48); MEAN CORPUSCULAR HEMOGLOBIN 30 pg (25-35); MEAN CORPUSCULAR HGB CONC 33 g/dL (31-37); MEAN CORPUSCULAR VOLUME 89 fL (79-100); MONO # 0.2 x10^3/uL (0.0-1.1); MONO % 9 % (0-9); NEUT # 1.2 x10^3/uL (1.8-7.7); NEUT % 56 % (31-73); PLATELET COUNT 57 x10^3/uL (140-400); RED BLOOD COUNT 4.29 x10^6/uL (4.30-5.70); RED CELL DISTRIBUTION WIDTH 20.7 % (11.5-14.5); WHITE BLOOD COUNT 2.2 x10^3/uL (4.0-11.0)
== END ==
LOC: ONCLAB 13:52
PROVIDERS: ATTEND Internal Medicine Hematology & Oncology
DX: D61.818 Other pancytopenia (principal); K76.0 Fatty (change of) liver, not elsewhere classified
CPT/HCPCS: 36415; 82728; 83540; 83550; 85025

== ENCOUNTER 2021-03-03 06:03 | Day surgery (SDC) | payer OTHER ==
[~2021-03-03] VITALS: Ht 167.6 cm; Wt 78.0 kg
[2021-03-03 06:22] VITALS: BP 104/63
[2021-03-03] MEDS ORDERED: SPIR50TA4 PO (06:38)
[2021-03-03] MEDS ORDERED: FURO20TA3 PO (06:38)
[2021-03-03] MEDS ORDERED: LIDOCAINE 2% PF 5 ML VIAL. ONE (06:43)
[2021-03-03] MEDS ORDERED: PROPOFOL 10 MG/ML (20ML) VIAL. IV ONE (06:43)
[2021-03-03] MEDS ORDERED: IV RINGERS,LACTATED 1000ML 1,000 ML IV SCH (07:00)
[2021-03-03 07:38] VITALS: BP 94/58
--- NOTE | 2021-03-03 09:25 | HP ---
ADMIT DATE: 03/03/2021 REASON: Gastric ulcer followup, esophageal variceal followup. HISTORY OF PRESENT ILLNESS: A 50-year-old male with past medical history significant for alcoholic cirrhosis, varices, history of gastric ulcer disease, interval EGD scope is recommended to assess ulcer healing as 2-4% of gastric ulcers are early cancers. He denies any bleeding. Weight and appetite are stable. He is otherwise without additional complaints. PAST MEDICAL HISTORY: Alcoholic cirrhosis, esophageal varices, gastric ulcers. ALLERGIES: None. MEDICATIONS: Include vitamin B12, furosemide 20 mg daily, metformin 1000 mg daily, spironolactone 50 mg b.i.d. FAMILY HISTORY: Significant for hypertension in his mother. SOCIAL HISTORY: Former drinker, nonsmoker. REVIEW OF SYSTEMS: Per records. PHYSICAL EXAMINATION: GENERAL: Reveals a well-nourished, well-developed male, who is alert, cooperative, in no acute distress. VITAL SIGNS: Temperature 97.6, pulse , respiratory rate 20. LUNGS: Clear. CARDIOVASCULAR: Reveals an S1, S2, without S3, S4 or appreciable murmur. ABDOMINAL: Soft abdomen. Normal bowel sounds. No appreciable hepatosplenomegaly. EXTREMITIES: Reveals no cyanosis, clubbing or edema. IMPRESSION: Gastric ulcer. Interval EGD to confirm healing is recommended as 2-4% of gastric ulcers are early gastric cancers. In addition, possible band ligation of the varices will be assessed at the same time. PILI/BRITTANY DR: Debbie TID: [id number]
== END 2021-03-03 07:51 | disposition home or self-care (01) ==
LOC: ENDOS 06:03
PROVIDERS: ATTEND Internal Medicine Gastroenterology
DX: K25.9 Gastric ulcer, unspecified as acute or chronic, without hemorrhage or perforation (principal); K25.7 Chronic gastric ulcer without hemorrhage or perforation; K31.89 Other diseases of stomach and duodenum; I85.00 Esophageal varices without bleeding; E11.9 Type 2 diabetes mellitus without complications; K74.60 Unspecified cirrhosis of liver; Z79.899 Other long term (current) drug therapy; Z98.890 Other specified postprocedural states; Z79.84 Long term (current) use of oral hypoglycemic drugs; Z88.8 Allergy status to other drugs, medicaments and biological substances
CPT/HCPCS: 43235; J2704